=== PATIENT | female | born 1930 | race Caucasian/White ===

== ENCOUNTER → 2017-04-09 | Outpatient (CLI) | payer OTHER ==
[~2017-04-09] MED LIST: ACETAMINOPHEN-1 EAC1 PO; APRISO0.375 GM PO; ASACOL HD800 MG; ASACOL HD800 MG PO; CHOLESTEROL1 GM PO; CHOLESTYRAMINE R5 GM MC; DILTIAZEM 24HR240 MG PO; DIOVAN HCT 3201 EAC1; DIOVAN HCT 3201 EACH PO; ESTRACE0.5 MG; ESTRACE0.5 MG PO; FOSAMAX 70 MG T70 M1 PO; LIPITOR10 MG PO; NASONEX17 GM INH; NORCO 5-325 TA1 EACH PO; OMEPRAZOLE 20 M20 MG PO; PROPRANOLOL 4040 MG PO; SERTRALINE HCL100 MG PO
== END ==
LOC: ULTRA 14:08
DX: I25.10 Atherosclerotic heart disease of native coronary artery without angina pectoris (principal); L81.9 Disorder of pigmentation, unspecified

== ENCOUNTER 2017-09-17 08:43 | Emergency (ER) | payer OTHER ==
[~2017-09-17] VITALS: Ht 172.7 cm; Wt 58.5 kg
[2017-09-17] MEDS ORDERED: POLYMYXIN B/TMP10 ML OPHTHALMIC (09:29)
[2017-09-17 09:53] LABS: URINE BILIRUBIN NEGATIVE (Negative); URINE BLOOD TRACE (Negative); URINE COLOR YELLOW; URINE GLUCOSE-RANDOM* NEGATIVE (Negative); URINE KETONES NEGATIVE (Negative); URINE PROTEIN (DIPSTICK) NEGATIVE (Negative); URINE SPECIFIC GRAVITY 1.015 (1.005-1.035); URINE UROBILINOGEN 0.2 E.U./dl (0.2-1.0)
[2017-09-17 09:54] LABS: URINE LEUKOCYTES-REFLEX 2+ (Negative)
[2017-09-17] MEDS ORDERED: KEFLEX500 M1 PO (10:01)
[2017-09-17 10:05] LABS: CASTS None Seen /LPF (None Seen); CRYSTALS None Seen /LPF (None Seen); SQUAMOUS None Seen /LPF (0-3); URINE RBC None Seen /HPF (0-2)
== END 2017-09-17 10:20 | disposition home or self-care (01) ==
LOC: ER 08:43
PROVIDERS: Emergency Medicine
DX: S05.02XA Injury of conjunctiva and corneal abrasion without foreign body, left eye, initial encounter (principal); I12.9 Hypertensive chronic kidney disease with stage 1 through stage 4 chronic kidney disease, or unspecified chronic kidney disease; N18.3 Chronic kidney disease, stage 3 (moderate); Z88.2 Allergy status to sulfonamides; X58.XXXA Exposure to other specified factors, initial encounter; Y93.89 Activity, other specified; Y92.89 Other specified places as the place of occurrence of the external cause; Y99.8 Other external cause status

== ENCOUNTER 2017-12-27 18:09 | Emergency (ER) | payer OTHER ==
[~2017-12-27] VITALS: Ht 172.7 cm; Wt 58.5 kg
--- NOTE | ~2017-12-27 | EKG ---
[address] [place] [address] ELECTROCARDIOGRAM REPORT Name: EDENILSON THOMPSON Room #: [facility]#: [id number] Admission: 12/27/17 Attend Phys: Discharge: 12/27/17 Date of : [birth year] Report #: [id number] THIS REPORT FOR: //name// [facility] ED Test Date: 2017-12-27 Test Time: 18:50:48 Pat Name: EDENILSON THOMPSON Department: Room: Gender: F Missile Technician: MZOOK : 1930 Requested By: Chung Ribeiro Order Number: [id number] MD: Gio Luu Measurements Intervals [place] Rate: 49 P: 69 CT: 233 QRS: -47 QRSD: 117 T: 5 QT: 467 QTc: 422 Interpretive Statements Sinus bradycardia Prolonged CT interval Left anterior fascicular block Borderline T abnormalities, anterior leads Poor R wave progression Compared to ECG 05/20/2014 15:41:14 nonspecific change in the ST and T-wave segments Electronically Signed On 12-28-2017 13:22:11 CDT by Gio Luu [email or web address] <ELECTRONICALLY SIGNED> By: Gio Luu MD, [facility] 12/28/17 1322 1850 1850 Gio Luu MD, [facility] /EPI
[~2017-12-27 18:09] MED LIST changes: +KEFLEX500 M1 PO; +POLYMYXIN B/TMP10 ML OPHTHALMIC
[2017-12-27 19:11] LABS: ABSOLUTE NEUTROPHILS 4.9 thou/uL (1.4-8.2); BASOPHILS 0.9 % (0.0-2.0); EOSINOPHILS 2.2 % (0.0-3.0); HEMATOCRIT 38.4 % (37.0-47.0); HEMOGLOBIN 12.6 gm/dL (12.0-15.0); LYMPHOCYTES 16.9 % (24.0-44.0); MCH 30.1 pg (26.0-34.0); MCHC 32.8 g/dL (28.0-37.0); MCV 91.8 fL (80.0-100.0); MONOCYTES 11.4 % (1.0-8.0); PLATELET COUNT 203 thou/uL (150-400); POLYS 68.6 % (36.0-66.0); RBC 4.18 mil/uL (4.20-5.00); RDW 14.2 % (10.5-14.5); WBC 7.1 thou/uL (4.0-11.0)
[2017-12-27] MEDS ORDERED: XALATAN2.5 ML OPHTHALMIC (19:18)
[2017-12-27] MEDS ORDERED: ESTRACE CREAM TOP (19:18)
[2017-12-27] MEDS ORDERED: RANITIDINE 150150 M1 PO (19:19)
[2017-12-27 19:20] LABS: ANION GAP 13 mmol/L (7-16); BUN 35 mg/dL (7-18); CALCIUM 9.8 mg/dL (8.5-10.1); CHLORIDE 104 mmol/L (98-107); CO2 21 mmol/L (21-32); CREATININE 1.5 mg/dL (0.6-1.0); GLUCOSE 94 mg/dL (74-106); POTASSIUM 3.5 mmol/L (3.5-5.1); SODIUM 138 mmol/L (136-145)
[2017-12-27 19:28] LABS: URINE BILIRUBIN NEGATIVE (Negative); URINE BLOOD TRACE (Negative); URINE CLARITY CLEAR; URINE COLOR YELLOW; URINE GLUCOSE-RANDOM* NEGATIVE (Negative); URINE KETONES NEGATIVE (Negative); URINE NITRITE-REFLEX NEGATIVE (Negative); URINE PROTEIN (DIPSTICK) 1+ (Negative); URINE SPECIFIC GRAVITY >= 1.030 (1.005-1.035); URINE UROBILINOGEN 0.2 E.U./dl (0.2-1.0)
[2017-12-27 19:29] LABS: ALBUMIN 3.7 g/dL (3.4-5.0); MAGNESIUM 2.2 mg/dL (1.8-2.4); SALICYLATE < 2.8 mg/dL (2.8-20.0); SGOT 27 U/L (15-37); SGPT 22 U/L (30-65); TOTAL BILIRUBIN 0.5 mg/dL (<0.1-1.0); TOTAL PROTEIN 8.3 g/dL (6.4-8.2); TROPONIN-I < 0.04 ng/mL (<0.06)
[2017-12-27 19:29] LABS: URINE LEUKOCYTES-REFLEX 2+ (Negative)
[2017-12-27 19:41] LABS: AMORPHOUS URATES Many /LPF (None Seen); HYALINE CASTS 4-10 Moderate /LPF (None Seen); MUCUS 4-6 Moderate strn/LPF (None Seen); SQUAMOUS 4-10 Moderate /LPF (0-3); URINE RBC 0-2 Rare /HPF (0-2); URINE WBC-REFLEX >25 Many /HPF (0-5)
[2017-12-27 19:50] LABS: AMP/METHAMP Negative (Negative); BARBITURATES Negative (Negative); BENZODIAZEPINES Negative (Negative); COCAINE Negative (Negative); METHADONE Negative (Negative); OPIATES Negative (Negative); PCP Negative (Negative)
[2017-12-27] MEDS ORDERED: KEFLEX500 M1 PO (21:50)
== END 2017-12-27 22:36 | disposition home or self-care (01) ==
LOC: ER 18:09
PROVIDERS: Emergency Medicine
DX: R44.0 Auditory hallucinations (principal); N39.0 Urinary tract infection, site not specified; I12.9 Hypertensive chronic kidney disease with stage 1 through stage 4 chronic kidney disease, or unspecified chronic kidney disease; N18.3 Chronic kidney disease, stage 3 (moderate); Z88.2 Allergy status to sulfonamides

== ENCOUNTER 2018-02-26 13:05 | Inpatient (IN) | payer OTHER ==
[~2018-02-26] VITALS: Ht 170.2 cm; Wt 57.0 kg
--- NOTE | ~2018-02-26 | EKG ---
[address] [address] ELECTROCARDIOGRAM REPORT Name: CATALINAEDENILSON SIU Room #: 420-P ADM IN M.R.#: [id number] Admission: 02/26/18 Attend Phys: Felipe Carey MD Discharge: Date of : [birth year] Report #: [id number] THIS REPORT FOR: //name// [facility] ED Test Date: 2018-02-26 Test Time: 13:31:39 Pat Name: EDENILSON THOMPSON Department: Room: Gender: F Various Exceptionalities Teacher: magdaleno : 1930 Requested By: Mirna Rausch Order Number: [id number] MD: Jalil Hurley Measurements Intervals [place] Rate: 60 P: 43 UT: 204 QRS: -42 QRSD: 99 T: 26 QT: 414 QTc: 414 Interpretive Statements Sinus rhythm Left anterior fascicular block Compared to ECG 12/27/2017 18:50:48 Sinus bradycardia no longer present First degree AV block no longer present T-wave abnormality no longer present Poor R-wave progression no longer present Electronically Signed On 02-26-2018 16:38:39 CDT by Jalil Hurley [email or web address] <ELECTRONICALLY SIGNED> By: Jalil Hurley MD 02/26/18 1638 1331 1331 Jalil Hurley MD /EPI
--- NOTE | ~2018-02-26 | 2DMMODE ---
[place] [address] [facility] [place] [address] 2 D/M-MODE ECHOCARDIOGRAM Name: JAYEDENILSON M Room #: 420-P [facility] IN .R.#: [id number] Admission: 02/26/18 Attend Phys: Felipe Carey, Discharge: Date of : [birth year] Date of Service: 03/02/18 1141 Report #: [id number] THIS REPORT FOR: //name// APPROVED REPORT Study performed: 03/02/2018 10:34:51 EXAM: Comprehensive 2D, Doppler, and color-flow Echocardiogram Patient Location: Bedside Room #: 420 Status: on-call BSA: 1.67 HR: 108 bpm Rhythm: Atrial Flutter Other Information Study Quality: Adequate Technically limited study due to breast implants. Indications Dyspnea Hypertension/HDD Weakness Bilateral pleural effusions 2D Dimensions LVEF(%): 37.05 (>50%) IVSd: 10.59 (7-11mm) LVOT Diam: 19.00 (18-24mm) LVDd: 41.49 mm PWd: 10.96 (7-11mm) Ascending Ao: 36.16 (22-36mm) LVDs: 34.18 (25-40mm) Aortic Root: 29.73 mm LV Single Plane 4CH: 32.45 % LV Single Plane 2CH: 30.50 % Fung's LVEF: 31.48 % Biplane EF: 30.0 % Volumes Left Atrial Volume (Systole) Single Plane 4CH: 31.36 mL Single Plane 2CH: 31.42 mL LA ESV Index: 23.00 mL/m2 Aortic Valve LVOT Max P.15 mmHg [facility] [address] [address] 2 D/M-MODE ECHOCARDIOGRAM Name: EDENILSON THOMPSON Room #: 420-P [facility] IN [facility]#: [id number] Admission: 02/26/18 Attend Phys: Felipe Carey, Discharge: Date of : [birth year] Date of Service: 03/02/18 1141 Report #: [id number] LVOT Max V: 0.89 m/s AI Vmax: 4.20 m/s AI [place]: 1.08 m/s2 AI PHT: 1125.36 ms Pulmonary Valve PV Peak Gr.: 0.86 mmHg Tricuspid Valve TR Peak Berry.: 2.02 m/s RAP Estimate: 7.00 mmHg TR Peak Gr.: 16.33 mmHg PA Pressure: 23.00 mmHg Left Ventricle The left ventricle is normal size. There is normal LV segmental wall motion. There is normal left ventricular wall thickness. Left ventricular systolic function is moderately decreased. LVEF is 35-40%. This study is not technically sufficient to allow evaluation of the LV diastolic function due to atrial flutter. Right Ventricle The right ventricle is normal size. The right ventricular systolic function is normal. Atria Left atrium is mildly dilated. Right atrium is dilated. Aortic Valve The Aortic valve is sclerotic. Mild aortic regurgitation. There is no aortic valvular stenosis. Mitral Valve There is mitral annular calcification. Mild mitral regurgitation. No evidence of mitral valve stenosis. Tricuspid Valve The tricuspid valve is normal in structure. Mild tricuspid regurgitation. Pulmonary artery pressure is 23 mmHg. Pulmonic Valve The pulmonary valve is normal in structure. There is no pulmonic valvular regurgitation. Great Vessels The aortic root is normal in size. IVC is normal in size and collapses with >50% inspiration [facility] [address] [place] [address] 2 D/M-MODE ECHOCARDIOGRAM Name: EDENILSON THOMPSON Room #: 420-P [facility] IN .R.#: [id number] Admission: 02/26/18 Attend Phys: Felipe Carey, Discharge: Date of : [birth year] Date of Service: 03/02/18 1141 Report #: [id number] Pericardium There is no pericardial effusion. Pleural effusion is present. <Conclusion> The left ventricle is normal size. There is normal left ventricular wall thickness. Left ventricular systolic function is moderately decreased. The right ventricle is normal size. Left atrium is mildly dilated. Right atrium is dilated. Mild aortic regurgitation. Mild mitral regurgitation. Mild tricuspid regurgitation. Pulmonary artery pressure is 23 mmHg. Pleural effusion is present. <ELECTRONICALLY SIGNED> By: Kyle Thompson MD 03/02/18 1141 1141 1141 Kyle Thompson MD /INF
--- NOTE | ~2018-02-26 | EKG ---
[address] [address] ELECTROCARDIOGRAM REPORT Name: EDENILSON THOMPSON Room #: 420-P ADM IN M.R.#: [id number] Admission: 02/26/18 Attend Phys: Felipe Carey MD Discharge: Date of : [birth year] Report #: [id number] THIS REPORT FOR: //name// [facility] Test Date: 2018-03-02 Test Time: 03:44:28 Pat Name: EDENILSON THOMPSON Department: Room: 420 P Gender: F Serials Librarian: JESIKA : 1930 Requested By: Felipe Carey Order Number: [id number] MD: yKle Thompson Measurements Intervals [place] Rate: 123 P: NE: QRS: -66 QRSD: 93 T: 19 QT: 354 QTc: 507 Interpretive Statements Atrial fibrillation Left anterior fascicular block Repolarization abnormality, prob rate related Prolonged QT interval Compared to ECG 02/26/2018 13:31:39 Atrial fibrillation now present Electronically Signed On 03-02-2018 11:37:18 CDT by Kyle Thompson [email or web address] <ELECTRONICALLY SIGNED> By: Kyle Thompson MD 03/02/18 1137 0344 0344 Kyle Thompson MD /SANDOR
--- NOTE | ~2018-02-26 | HC ---
[facility] [place] [address] CONSULTATION Name: EDENILSON THOMPSON Room #: 420-P [facility] IN M.R.#: [id number] Admission: 02/26/18 Attend Phys: Felipe Carey MD Discharge: Date of : [birth year] Report #: [id number] THIS REPORT FOR: //name// CC: Felipe Daiz DATE OF SERVICE: 03/02/2018 INDICATION: Atrial fibrillation. HISTORY OF PRESENT ILLNESS: This is a pleasant 88-year-old female who was admitted for generalized weakness and chronic UTI. The patient has a history of hypertension, essential tremors. According to the daughter, she had issues with UTI in December, but since her discharge, she has continued to have generalized weakness with a decrease in her oral intake. She was admitted for these problems, did undergo a geriatrics consultation. Over the past 4 days, her eating has improved. She feels stronger, but she also reported having some dyspnea with exertion. On her initial evaluation, she was noted to have bilateral pleural effusions, the etiology is unknown. The CT scan was negative for PE. Early this morning, the rhythm changed from sinus to atrial fibrillation with a heart rate in the 123 beats per minute range. This is clinically asymptomatic. She was given Lasix last evening and this morning, and she feels better in regards to her shortness of breath. There is no history of chest pains, palpitations or lightheadedness. PAST MEDICAL HISTORY: Followed by Dr. Carroll for hypertension. History of ulcerative colitis, hypertension, essential tremors. ALLERGIES: INCLUDE SULFA. MEDICATIONS: At home include Diovan/HCTZ, diltiazem 120 mg daily, propranolol 40 mg for tremors, ranitidine and omeprazole. SOCIAL HISTORY: Negative for tobacco use. FAMILY HISTORY: Negative for premature CAD. REVIEW OF SYSTEMS: A full 10-point review of systems performed. Only the pertinent positives and negatives are described in the HPI. PHYSICAL EXAMINATION: VITAL SIGNS: Blood pressure is 120/80, heart rate is 110 beats per minute. GENERAL APPEARANCE: An elderly appearing female in no acute distress. HEAD AND EYES: Normocephalic. Sclerae are anicteric. [facility] [address] [place] [address] CONSULTATION Name: EDENILSON THOMPSON Room #: 420-P [facility] IN [facility].#: [id number] Admission: 02/26/18 Attend Phys: Felipe Carey MD Discharge: Date of : [birth year] Report #: [id number] ENT: Oral mucosa moist. NECK: Supple, no JVD. LUNGS: Diminished breath sounds at the bases. CARDIAC: Tachycardic, S1, S2 positive. ABDOMEN: Soft, nontender. EXTREMITIES: No cyanosis. Trace edema. ECG reveals atrial fibrillation with a heart rate of 123 beats per minute, nonspecific ST segment abnormality. LABORATORY VALUES: White count 12.5, hemoglobin 11.0. Sodium is 136, creatinine is 0.8. ASSESSMENT AND PLAN: 1. Atrial fibrillation, new onset, clinically asymptomatic. We will need to rate control with Cardizem and beta-radha therapy. I discussed with the patient and daughter the pros and cons of anticoagulation therapy, we will start on Eliquis. 2. Congestive heart failure/pleural effusions, the preliminary echo reveals a decrease in LV systolic function. She did receive Lasix times 2 with symptomatic improvement in her dyspnea. We will continue with low-dose Lasix at this time. 3. Hypertension. The blood pressure is stable. 4. Essential tremors. 5. Advanced age/general debility, the patient is DNR. <ELECTRONICALLY SIGNED> By: Kyle Thompson MD 03/03/18 0753 1105 1253 Kyle Thompson MD /nt
[~2018-02-26 13:05] MED LIST changes: +ESTRACE CREAM TOP; +RANITIDINE 150150 M1 PO; +XALATAN2.5 ML OPHTHALMIC
[2018-02-26 13:07] VITALS: BP 104/64
[2018-02-26 13:46] LABS: ABSOLUTE NEUTROPHILS 10.9 thou/uL (1.4-8.2); BASOPHILS 0.4 % (0.0-2.0); EOSINOPHILS 1.2 % (0.0-3.0); HEMATOCRIT 37.6 % (37.0-47.0); HEMOGLOBIN 12.5 gm/dL (12.0-15.0); LYMPHOCYTES 4.1 % (24.0-44.0); MCH 30.1 pg (26.0-34.0); MCHC 33.1 g/dL (28.0-37.0); MCV 90.8 fL (80.0-100.0); MONOCYTES 6.8 % (1.0-8.0); PLATELET COUNT 189 thou/uL (150-400); POLYS 87.5 % (36.0-66.0); RBC 4.15 mil/uL (4.20-5.00); RDW 14.7 % (10.5-14.5); WBC 12.5 thou/uL (4.0-11.0)
[2018-02-26 13:55] LABS: ANION GAP 11 mmol/L (7-16); BUN 31 mg/dL (7-18); CALCIUM 10.2 mg/dL (8.5-10.1); CHLORIDE 96 mmol/L (98-107); CO2 23 mmol/L (21-32); CREATININE 1.3 mg/dL (0.6-1.0); GLUCOSE 128 mg/dL (74-106); POTASSIUM 3.5 mmol/L (3.5-5.1); SODIUM 130 mmol/L (136-145)
[2018-02-26] MEDS ORDERED: CARDIZEM CD120 MG PO (14:02)
[2018-02-26 14:04] LABS: TROPONIN-I < 0.04 ng/mL (<0.06)
[2018-02-26 14:27] LABS: URINE BILIRUBIN NEGATIVE (Negative); URINE BLOOD 2+ (Negative); URINE CLARITY CLEAR; URINE COLOR YELLOW; URINE GLUCOSE-RANDOM* NEGATIVE (Negative); URINE KETONES TRACE (Negative); URINE LEUKOCYTES NEGATIVE (Negative); URINE NITRITE NEGATIVE (Negative); URINE PROTEIN (DIPSTICK) 2+ (Negative); URINE UROBILINOGEN 0.2 E.U./dl (0.2-1.0)
[2018-02-26 14:38] LABS: BACTERIA None Seen /HPF (None Seen); CRYSTALS None Seen /LPF (None Seen); FINE GRANULAR CASTS 0-3 Few /LPF (None Seen); HYALINE CASTS 4-10 Moderate /LPF (None Seen); MUCUS >6 Heavy strn/LPF (None Seen); SQUAMOUS 4-10 Moderate /LPF (0-3); URINE RBC 3-10 Few /HPF (0-2); URINE WBC 6-15 Few /HPF (0-5)
[2018-02-26 14:43] VITALS: BP 99/55
[2018-02-26 14:55] VITALS: BP 105/50
[2018-02-26 15:00] VITALS: BP 111/52
[2018-02-26 15:48] LABS: ALBUMIN 3.5 g/dL (3.4-5.0)
[2018-02-26 16:14] LABS: TSH 2.19 uIU/mL (0.358-3.740)
[2018-02-26 20:00] VITALS: BP 102/56
[2018-02-27 04:00] VITALS: BP 126/64
[2018-02-27 06:31] LABS: HEMATOCRIT 32.1 % (37.0-47.0); HEMOGLOBIN 10.8 gm/dL (12.0-15.0); MCH 30.6 pg (26.0-34.0); MCHC 33.7 g/dL (28.0-37.0); MCV 90.7 fL (80.0-100.0); RBC 3.54 mil/uL (4.20-5.00); RDW 14.5 % (10.5-14.5); WBC 8.9 thou/uL (4.0-11.0)
[2018-02-27 06:42] LABS: CALCIUM 8.7 mg/dL (8.5-10.1); MAGNESIUM 1.7 mg/dL (1.8-2.4)
[2018-02-27 06:47] LABS: POTASSIUM 2.9 mmol/L (3.5-5.1)
[2018-02-27 07:10] VITALS: BP 135/73
[2018-02-27 16:19] VITALS: BP 143/63
[2018-02-27 16:22] VITALS: BP 147/65
[2018-02-27 18:43] LABS: MAGNESIUM 2.4 mg/dL (1.8-2.4); POTASSIUM 4.3 mmol/L (3.5-5.1)
[2018-02-27 20:00] VITALS: BP 120/72
[2018-02-28 05:24] VITALS: BP 131/62
[2018-02-28 05:53] LABS: HEMATOCRIT 32.7 % (37.0-47.0); MCH 30.3 pg (26.0-34.0); MCHC 33.5 g/dL (28.0-37.0); MCV 90.5 fL (80.0-100.0); RBC 3.62 mil/uL (4.20-5.00); RDW 14.7 % (10.5-14.5); WBC 8.5 thou/uL (4.0-11.0)
[2018-02-28 06:06] LABS: CALCIUM 8.7 mg/dL (8.5-10.1); CREATININE 0.9 mg/dL (0.6-1.0); MAGNESIUM 2.2 mg/dL (1.8-2.4); POTASSIUM 3.8 mmol/L (3.5-5.1)
[2018-02-28 09:00] VITALS: BP 128/63
[2018-02-28 19:30] VITALS: BP 144/66
[2018-03-01 04:02] VITALS: BP 129/79
[2018-03-01 10:13] LABS: HEMATOCRIT 31.8 % (37.0-47.0); HEMOGLOBIN 10.7 gm/dL (12.0-15.0); MCH 30.4 pg (26.0-34.0); MCHC 33.5 g/dL (28.0-37.0); MCV 90.5 fL (80.0-100.0); RBC 3.51 mil/uL (4.20-5.00); RDW 14.9 % (10.5-14.5)
[2018-03-01 10:15] VITALS: BP 139/73
[2018-03-01 10:26] LABS: CALCIUM 7.5 mg/dL (8.5-10.1); CREATININE 0.6 mg/dL (0.6-1.0); MAGNESIUM 1.7 mg/dL (1.8-2.4); POTASSIUM 3.2 mmol/L (3.5-5.1)
[2018-03-01 10:52] VITALS: BP 139/73
[2018-03-01 19:51] VITALS: BP 134/83
[2018-03-01 20:00] VITALS: BP 138/60
[2018-03-01 22:38] LABS: POTASSIUM 3.8 mmol/L (3.5-5.1)
[2018-03-01 23:09] LABS: ADENOVIRUS Negative (Negative); INFLUENZA A Negative (Negative); INFLUENZA B Negative (Negative); METAPNEUMOVIRUS Negative (Negative); PARAINFLUENZA 1 Negative (Negative); PARAINFLUENZA 2 Negative (Negative); PARAINFLUENZA 3 Negative (Negative); RHINOVIRUS Negative (Negative); RSV A Negative (Negative); RSV B Negative (Negative)
[2018-03-02 03:43] LABS: MCH 29.9 pg (26.0-34.0); MCHC 33.4 g/dL (28.0-37.0); MCV 89.6 fL (80.0-100.0); RBC 3.68 mil/uL (4.20-5.00); RDW 14.8 % (10.5-14.5); WBC 12.5 thou/uL (4.0-11.0)
[2018-03-02 03:55] LABS: CALCIUM 8.6 mg/dL (8.5-10.1); CREATININE 0.8 mg/dL (0.6-1.0); POTASSIUM 3.4 mmol/L (3.5-5.1)
[2018-03-02 04:47] VITALS: BP 122/85
[2018-03-02 07:25] VITALS: BP 122/87
[2018-03-02 15:59] VITALS: BP 118/71
[2018-03-02 19:21] VITALS: BP 117/71
[2018-03-03 05:29] VITALS: BP 143/85
[2018-03-03 08:08] VITALS: BP 125/81
[2018-03-03 11:19] LABS: HEMATOCRIT 35.9 % (37.0-47.0); HEMOGLOBIN 11.8 gm/dL (12.0-15.0); MCH 29.6 pg (26.0-34.0); MCHC 32.9 g/dL (28.0-37.0); MCV 89.9 fL (80.0-100.0); RDW 15.3 % (10.5-14.5); WBC 13.1 thou/uL (4.0-11.0)
[2018-03-03 11:35] LABS: ALBUMIN 2.6 g/dL (3.4-5.0); CALCIUM 9.1 mg/dL (8.5-10.1); POTASSIUM 4.2 mmol/L (3.5-5.1); TOTAL BILIRUBIN 0.9 mg/dL (<0.1-1.0); TOTAL PROTEIN 7.4 g/dL (6.4-8.2)
[2018-03-03 17:06] VITALS: BP 134/69
[2018-03-03 20:00] VITALS: BP 114/70
[2018-03-04] VITALS (7 sets, daily range): BP systolic 74–130; BP diastolic 43–84
[2018-03-04 05:13] LABS: HEMATOCRIT 35.9 % (37.0-47.0); MCHC 33.6 g/dL (28.0-37.0); MCV 89.4 fL (80.0-100.0); RBC 4.01 mil/uL (4.20-5.00); RDW 14.7 % (10.5-14.5)
[2018-03-04 05:27] LABS: CALCIUM 8.7 mg/dL (8.5-10.1); MAGNESIUM 1.9 mg/dL (1.8-2.4); POTASSIUM 3.4 mmol/L (3.5-5.1)
[2018-03-05 00:33] VITALS: BP 90/48
[2018-03-05 01:44] VITALS: BP 90/49
[2018-03-05 04:10] VITALS: BP 121/73
[2018-03-05 05:27] LABS: HEMOGLOBIN 11.4 gm/dL (12.0-15.0); MCH 29.4 pg (26.0-34.0); MCHC 32.5 g/dL (28.0-37.0); MCV 90.4 fL (80.0-100.0); RBC 3.87 mil/uL (4.20-5.00); RDW 15.3 % (10.5-14.5); WBC 11.9 thou/uL (4.0-11.0)
[2018-03-05 05:29] LABS: CALCIUM 8.7 mg/dL (8.5-10.1); CREATININE 1.5 mg/dL (0.6-1.0); POTASSIUM 4.2 mmol/L (3.5-5.1)
[2018-03-05 10:58] VITALS: BP 84/50
[2018-03-05 17:49] VITALS: BP 100/45
[2018-03-05 20:20] VITALS: BP 110/57
[2018-03-06 04:45] VITALS: BP 123/57
[2018-03-06 06:15] LABS: HEMATOCRIT 35.8 % (37.0-47.0); HEMOGLOBIN 11.8 gm/dL (12.0-15.0); MCH 29.7 pg (26.0-34.0); RBC 3.98 mil/uL (4.20-5.00); RDW 15.2 % (10.5-14.5); WBC 11.1 thou/uL (4.0-11.0)
[2018-03-06 06:37] LABS: CALCIUM 9.7 mg/dL (8.5-10.1); CREATININE 1.3 mg/dL (0.6-1.0); MAGNESIUM 2.1 mg/dL (1.8-2.4); POTASSIUM 4.2 mmol/L (3.5-5.1)
[2018-03-06 07:25] VITALS: BP 105/65
[2018-03-06] MEDS ORDERED: PACERONE 200 M200 M1 PO (12:52)
[2018-03-06] MEDS ORDERED: ELIQUIS2.5 MG PO (12:52)
[2018-03-06] MEDS ORDERED: DEMADEX 2020 MG/1 TA PO (13:01)
[2018-03-06] MEDS ORDERED: COZAAR 25 MG TA25 M1 PO (13:16)
[2018-03-06] MEDS ORDERED: MELATONIN5 M1 PO (17:26)
== END 2018-03-06 18:23 | DRG 871 ==
LOC: ER 13:05 → EROBS 14:04 → 4E 14:04
PROVIDERS: Emergency Medicine; Internal Medicine
DX: A41.9 Sepsis, unspecified organism (principal); J18.9 Pneumonia, unspecified organism; I50.43 Acute on chronic combined systolic (congestive) and diastolic (congestive) heart failure; N17.9 Acute kidney failure, unspecified; E87.0 Hyperosmolality and hypernatremia; I13.0 Hypertensive heart and chronic kidney disease with heart failure and stage 1 through stage 4 chronic kidney disease, or unspecified chronic kidney disease; E46 Unspecified protein-calorie malnutrition; E87.1 Hypo-osmolality and hyponatremia; I48.92 Unspecified atrial flutter; I42.8 Other cardiomyopathies; Z68.1 Body mass index [BMI] 19.9 or less, adult; N18.3 Chronic kidney disease, stage 3 (moderate); I48.91 Unspecified atrial fibrillation; Z66 Do not resuscitate; G25.0 Essential tremor; E87.6 Hypokalemia; E83.42 Hypomagnesemia; Z60.2 Problems related to living alone; E86.0 Dehydration; F41.9 Anxiety disorder, unspecified; I08.3 Combined rheumatic disorders of mitral, aortic and tricuspid valves; Z79.899 Other long term (current) drug therapy; Z88.2 Allergy status to sulfonamides; Z87.440 Personal history of urinary (tract) infections
CPT/HCPCS: 10783; 27001

== ENCOUNTER → 2018-06-21 | Outpatient (CLI) | payer OTHER ==
[~2018-06-21] MED LIST changes: +CARDIZEM CD120 MG PO; +COZAAR 25 MG TA25 M1 PO; +DEMADEX 2020 MG/1 TA PO; +ELIQUIS2.5 MG PO; +MELATONIN5 M1 PO; +PACERONE 200 M200 M1 PO
--- NOTE | ~2018-06-21 | 2DMMODE ---
[facility] [place] [address] 2 D/M-MODE ECHOCARDIOGRAM Name: DENNIS THOMPSONLA Mark Room #: [facility]#: [id number] Admission: 06/21/18 Attend Phys: Lenny Carroll, Discharge: Date of : [birth year] Date of Service: 06/21/18 1541 Report #: [id number] THIS REPORT FOR: //name// APPROVED REPORT Study performed: 06/21/2018 14:36:25 EXAM: Limited 2D, Doppler, and color-flow Echocardiogram Patient Location: Out-Patient Status: routine BSA: 1.67 HR: 54 bpm Rhythm: NSR Other Information Study Quality: Adequate/breast implants Indications Limited follow up echo. Hypertension. Hx: Afib with cardiomyopathy (35-40% on echo done 03/02/18) 2D Dimensions IVSd: 8.81 (7-11mm) LVDd: 43.27 mm PWd: 10.20 (7-11mm) LVDs: 29.37 (25-40mm) Aortic Root: 34.96 mm Aortic Valve AoV Peak Berry.: 1.21 m/s AO Peak Gr.: 5.83 mmHg Mitral Valve E/A Ratio: 2.7 MV Decel. Time: 118.85 ms MV E Max Berry.: 1.17 m/s MV A Berry.: 0.43 m/s MV PHT: 34.47 ms IVRT: 59.98 ms Pulmonary Vein P Vein S: 0.35 m/s P Vein D: 0.70 m/s P Vein S/D Ratio: 0.50 [facility] [address] [place] [address] 2 D/M-MODE ECHOCARDIOGRAM Name: EDENILSON THOMPSON Room #: [facility]#: [id number] Admission: 06/21/18 Attend Phys: Lenny Carroll, Discharge: Date of : [birth year] Date of Service: 06/21/18 1541 Report #: [id number] Tricuspid Valve TR Peak Berry.: 3.31 m/s RAP Estimate: 10.00 mmHg TR Peak Gr.: 43.84 mmHg PA Pressure: 54.00 mmHg Left Ventricle The left ventricle is normal size. There is normal left ventricular wall thickness. Left ventricular systolic function is normal. LVEF is 55-60%. Severe diastolic dysfunction is present (restrictive filling). Right Ventricle The right ventricle is normal size. The right ventricular systolic function is normal. Atria The left atrium size is normal. PFO is suggested by color flow mapping Right atrium is dilated. Aortic Valve Aortic valve leaflets are mildly calcified. Mild aortic regurgitation. There is no aortic valvular stenosis. Mitral Valve Mild mitral annular calcification Moderate mitral regurgitation. Tricuspid Valve The tricuspid valve is normal in structure. Moderate tricuspid regurgitation. Estimated PAP is 55mmHg. Great Vessels The aortic root is normal in size. IVC is dilated and collapses <50% with inspiration. Pericardium There is no pericardial effusion. <Conclusion> Left ventricular systolic function is normal. LVEF 55-60%. Right atrium is dilated. PFO is suggested by color flow mapping Aortic valve leaflets are mildly calcified. Mild aortic regurgitation, no stenosis. [facility] [address] [address] 2 D/M-MODE ECHOCARDIOGRAM Name: EDENILSON THOMPSON Room #: [facility]#: [id number] Admission: 06/21/18 Attend Phys: Lenny Carroll, Discharge: Date of : [birth year] Date of Service: 06/21/181540 Report #: [id number] Mild mitral annular calcification. Moderate mitral regurgitation. Moderate tricuspid regurgitation. Estimated pulmonary artery pressure of 55mmHg. There is no pericardial effusion. <ELECTRONICALLY SIGNED> By: Gio Luu MD, FACC 06/21/181540 40 40 Gio Luu MD, FACC /INF
== END ==
LOC: CV 07:07
DX: I08.3 Combined rheumatic disorders of mitral, aortic and tricuspid valves (principal); I10 Essential (primary) hypertension; Q21.1 Atrial septal defect; I48.91 Unspecified atrial fibrillation; I42.9 Cardiomyopathy, unspecified